=== PATIENT | female | born 1990 | race Caucasian/White ===

== ENCOUNTER 2017-05-27 14:08 | Emergency (ER) | payer MEDICAID ==
[~2017-05-27] VITALS: Ht 152.4 cm; Wt 59.3 kg
[2017-05-27 14:11] VITALS: Ht 152.4 cm; Wt 59.3 kg
[2017-05-27] MEDS ORDERED: ACETAMINOPHEN 325 MG TAB PO ONE (15:30)
--- NOTE | 2017-05-27 16:00 | RADRPT ---
PROCEDURE: XR Chest. CLINICAL INDICATION: Cough . TECHNIQUE: Single frontal chest x-ray. COMPARISON: None. FINDINGS: The lungs are clear of acute infiltrates, edema, effusions, or masses.. The cardiomediastinal silho uette is unremarkable. The osseous structures are intact. IMPRESSION: No acute cardiopulmonary disease. RPTAT: QQ .Ramana Fry MD, MD Date Time Electronically viewed and signed by .Ramana Fry MD, MD on 05/27/2017 16:00 .L/
[2017-05-27] MEDS ORDERED: TYL500 PO (16:54)
[2017-05-27] MEDS ORDERED: PROM6.25 PO (16:54)
--- NOTE | 2017-05-27 17:28 | ERD ---
ER Documentation Chief Complaint Chief Complaint Complains of a fever x 2 days HPI This is a 27-year-old female presents to the ER with a fever for the last 2 days. Patient states that she has a sore throat, stuffy nose and cough. Today she took 1 dose of ampicillin and states she started feeling nauseous since then. Patient states that cough is dry and constant she denies any chest pain or shortness of breath. She denies any abdominal pain. She denies any urinary frequency or dysuria. Denies any IV drug use. ROS 12 point review of systems was done, all negative except per HPI. Medications Home Meds Active Scripts Promethazine Hcl* (Promethazine Hcl* Syrup) 6.25 Mg/5 Ml Syrup, 12.5 MG PO Q6H Y for COUGH for 5 Days, ML Prov:DELICIA QUINTANA 05/27/17 Acetaminophen* (Tylenol*) 500 Mg Tab, 500 MG PO Q4H Y for MILD PAIN LEVEL 1-3 for 4 Days, TAB Prov:DELICIA QUINTANA 05/27/17 Allergies Allergies: Coded Allergies: No Known Allergy (Unverified , 05/27/17) PMhx/Soc Medical and Surgical Hx: pt denies Medical Hx, pt denies Surgical Hx History of Surgery: No Anesthesia Reaction: No Hx Neurological Disorder: No Hx Respiratory Disorders: No Hx Cardiac Disorders: No Hx Psychiatric Problems: No Hx Miscellaneous Medical Probl: No Hx Alcohol Use: Yes (OOC) Hx Substance Use: Yes (MJ) Hx Tobacco Use: No Smoking Status: Never smoker Physical Exam Vitals Vital Signs Date Time Temp Pulse Resp B/P Pulse Ox O2 Delivery O2 Flow Rate FiO2 05/27/17 14:11 100.9 106 20 119/72 94 Physical Exam GENERAL: The patient is well-developed, well-nourished, in no acute distress. NECK: Cervical spine is non tender with no step off. Supple, no nuchal rigidity HEENT: Atraumatic. Pupils equal, round and reactive to light. Extraocular muscles are grossly intact. Conjunctivae pink, no discharge. Bilateral tympanic membranes are clear with no evidence of erythema, effusion or dulling of the light reflex. Tonsilar erythema with no exudates or uvular deviation. Clear rhinorrhea. RESPIRATORY: Clear to auscultation bilaterally. There are no rales, wheezes or rhonchi. HEART: Regular rate and rhythm. No murmurs, clicks, rubs or gallops. EXTREMITIES: No clubbing or cyanosis. Full range of motion. Grossly neurovascularly intact. NEUROLOGIC: Alert and oriented. Cranial nerves II through XII are intact. SKIN: There is no rash. The skin is warm and dry. Results 24 hrs Current Medications Medications (Trade) Dose Ordered Sig/Sapna Route PRN Reason Start Time Stop Time Status Last Admin Dose Admin Acetaminophen (Tylenol Tab) 650 mg ONCE ONCE PO 05/27/17 15:30 05/27/17 15:31 DC 05/27/17 15:31 Radiology Main Line: [phone] DIAGNOSTIC IMAGING REPORT Patient: ILENE MOTA : 1990 Age: 27 Sex: F MR #: [id number] DOS: 05/27/17 0000 Ordering MD: DELICIA QUINTANA. PA-C Location: [facility] Room/Bed: PROCEDURE: XR Chest. CLINICAL INDICATION: Cough . TECHNIQUE: Single frontal chest x-ray. COMPARISON: None. FINDINGS: The lungs are clear of acute infiltrates, edema, effusions, or masses.. The cardiomediastinal silhouette is unremarkable. The osseous structures are intact. IMPRESSION: No acute cardiopulmonary disease. RPTAT: QQ .Ramana Fry MD, Date Time Electronically viewed and signed by .Ramana Fry MD, on 05/27/2017 16:00 .L/ CC: DELICIA QUINTANA Procedures/MDM Differential diagnosis includes but is not limited to; Viral URI, allergic rhinitis, bronchitis, pertussis,pneumonia. Does have the influenza virus likely the cause of her fever and her symptoms. Clinical suspicion for pneumonia is low as patient appears well, is not hypoxic or in any respiratory distress. Additionally, patients physical examination is benign. Plan was discussed with patient they understand and agree. Patient needs to follow up with PCP in 1-2 days or return to ER sooner if symptoms worsen. Departure Diagnosis: Primary Impression: Influenza Condition: Stable Patient Instructions: Influenza (Adult) Additional Instructions: Call your primary care doctor TOMORROW for an appointment during the next 1-2 days.See the doctor sooner or return here if your condition worsens before your appointment time. DELICIA QUINTANA May 27, 2017 17:28
== END 2017-05-27 17:53 | disposition left against medical advice (07) ==
LOC: FTE 14:08
DX: J11.1 Influenza due to unidentified influenza virus with other respiratory manifestations (principal)
CPT/HCPCS: 71010; 87400; 87880; Z7502; Z7610